=== PATIENT | female | born 1970 | race African-American/Black ===

== ENCOUNTER 2016-12-19 17:29 | Inpatient (IN) | payer OTHER ==
[2016-12-19] MEDS ORDERED: ACETAMINOPHEN 325 MG TABLET (FP) PO ONE (17:47)
--- NOTE | 2016-12-19 17:47 | PDOC ---
History of Present Illness - General History Source: Patient, Primary Care Provider Exam Limitations: No Limitations <Bimal Ribeiro - Last Filed: 12/19/16 17:48> - General History Source: Patient, Old Records, Primary Care Provider Exam Limitations: No Limitations - History of Present Illness Initial Comments: 12/19/16 18:08 The patient is a 46 year old female, with a significant past medical history of , who presents to the emergency department after being sent to be worked up for possible tuberculosis due to the finding of pulmonary cavitary lesion on a CT Scan. She notes that she started developing lower extremity edema a few months. She states that she has had a 19 pound weight loss during this time frame, along with fevers that are intermittent. She also underwent further workup at her PMDs office which demonstrated hemolytic anemia. She also states that she under went a bone marrow biopsy several days ago in order to rule puf leukemia, lymphoma. The patient denies chest pain, shortness of breath, headache and dizziness. Denies fever, chills, nausea, vomit, diarrhea and constipation. Denies dysuria, frequency, urgency and hematuria. Allergies: None Past surgical history: None reported Social history: No alcohol, tobacco or drug use reported PMD - Dr. Morel <Munir Melgoza - Last Filed: 12/19/16 18:11> - General Stated Complaint: PCP SENT Time Seen by Provider: 12/19/16 17:31 Review of Systems - Review of Systems Able to Perform ROS?: Yes Comments:: 12/19/16 18:07 GENERAL/CONSTITUTIONAL: No fever or chills. No weakness. HEAD, EYES, EARS, NOSE AND THROAT: No change in vision. No ear pain or discharge. No sore throat. CARDIOVASCULAR: No chest pain or shortness of breath RESPIRATORY: No cough, wheezing, or hemoptysis. GASTROINTESTINAL: No nausea, vomiting, diarrhea or constipation. GENITOURINARY: No dysuria, frequency, or change in urination. MUSCULOSKELETAL: No joint or muscle swelling or pain. No neck or back pain. EXTREMITIES: +Lower extremity edema bilaterally. SKIN: No rash NEUROLOGIC: No headache, vertigo, loss of consciousness, or change in strength/ sensation. ENDOCRINE: +Abnormal weight change. No increased thirst. HEMATOLOGIC/LYMPHATIC: No anemia, easy bleeding, or history of blood clots. ALLERGIC/IMMUNOLOGIC: No hives or skin allergy. <JojoMunir feliz Carolyn - Last Filed: 12/19/16 18:11> *Physical Exam - Vital Signs Last Vital Signs Temp Pulse Resp BP Pulse Ox 101.8 F H 105 H 20 97/62 99 12/19/16 18:02 12/19/16 18:02 12/19/16 18:02 12/19/16 18:02 12/19/16 18:02 - Physical Exam Comments: 12/19/16 18:08 GENERAL: Awake, alert, and fully oriented, in no acute distress. Thin appearing and warm to touch. HEAD: No signs of trauma, normocephalic, atraumatic EYES: PERRLA, EOMI, sclera anicteric, conjunctiva clear ENT: Auricles normal inspection, hearing grossly normal, nares patent, oropharynx clear without exudates. Moist mucosa NECK: Normal ROM, supple, no lymphadenopathy, JVD, or masses LUNGS: No distress, speaks full sentences, clear to auscultation bilaterally HEART: Regular rate and rhythm, normal S1 and S2, no murmurs, rubs or gallops, peripheral pulses normal and equal bilaterally. ABDOMEN: Soft, nontender, normoactive bowel sounds. No guarding, no rebound. No masses EXTREMITIES: 2+ pitting edema lower extremity bilaterally. Normal range of motion. No clubbing or cyanosis. NEUROLOGICAL: Cranial nerves II through XII grossly intact. Normal speech, normal gait, no focal sensorimotor deficits SKIN: Warm, Dry, normal turgor, no rashes or lesions noted. <Munir Melgoza - Last Filed: 12/19/16 18:11> Medical Decision Making - Medical Decision Making 12/19/16 17:48 A portion of this note was documented by scribe services under my direction. I have reviewed the details of the note, within reason, and agree with the documentation with the following case summary and management plan written by me. Patient treated in the ED. Nursing notes are reviewed and incorporated into the medical decision-making. Vital signs reviewed. Peripheral IV access obtained by the nurse, laboratory studies are drawn and sent, reviewed and interpreted by myself. 46-year-old female with no past medical history sent in from patient's primary care physician Dr. Morel for admission for pulmonary cavitary lesion. Patient reports that several months ago, patient has started developing lower extremity edema. She underwent a workup that demonstrated hemolytic anemia. Since then, the patient is noted a 19 pound weight loss and intermittent fevers. Patient had then underwent a bone marrow biopsy several days ago for rule out leukemia, lymphoma. Today, she underwent a CAT scan of the chest and of the pelvis to further workup fever of unknown origin and noted the pulmonary cavitary lesions , the TB need to rule out. Patient sent to the ER. Here, patient has a fever here. We'll draw adult sepsis protocol. Patient's PMD requests Dr. Mchugh. We' ll draw cultures, AFB smear and a few blood. We'll admit the patient to an isolated bed for TB workup. Case discussed in detail with admitting physician including history, physical exam and ancillary studies. Admitting physician has assumed care for the patient, will follow all pending diagnostics and will complete the evaluation and treatment. <Bimal Ribeiro - Last Filed: 12/19/16 17:48> - Medical Decision Making 12/19/16 18:10 Dr. Rodgers was called regarding the patient at 5:46pm Dr. Rodgers was consulted regarding the patient at 6:09pm [phone] <Munir Melgoza - Last Filed: 12/19/16 18:11> *DC/Admit/Observation/Transfer - Discharge Dispostion Admit: Yes <Bimal Ribeiro - Last Filed: 12/19/16 17:48> - Attestations Scribe Attestion: 12/19/16 18:09 Documentation prepared by Munir Melgoza, acting as biomedical field service engineer for Bimal Ribeiro MD <Munir Melgoza - Last Filed: 12/19/16 18:11> Diagnosis at time of Disposition: Pulmonary cavitary lesion - Referrals Referrals: Shaun Morel MD [Primary Care Provider] -
[2016-12-19 18:05] VITALS: BMI 19.2
[2016-12-19 18:12] LABS: BASOPHIL 0.3 % (0-2.0); EOSINOPHIL 0.1 % (0-4.5); MCH 28.6 pg (25.7-33.7); MCHC 32.3 g/dl (32.0-36.0); MEAN CELL VOLUME 88.7 fl (80-96); NEUTROPHILS 87.5 % (42.8-82.8); PLATELET COUNT 41 K/MM3 (134-434); RDW 20.9 % (11.6-15.6); WHITE BLOOD COUNT 19.4 K/mm3 (4.0-10.0)
[2016-12-19 18:24] LABS: INR 1.37 (0.82-1.09); PROTHROMBIN TIME (PATIENT) 15.2 SEC (9.98-11.88)
[2016-12-19 18:27] LABS: ACTIVATED PTT 27.6 SECONDS (26.9-34.4)
[2016-12-19 18:35] LABS: VENOUS BLOOD GAS HCO3 26.7 meq/L (19-25); VENOUS PH 7.44 (7.32-7.42)
[2016-12-19 18:43] LABS: ALBUMIN 2.4 g/dl (3.4-5.0); ANION GAP 10 (8-16); CALCIUM 7.5 mg/dL (8.5-10.1); CO2 25 mmol/L (21-32); CREATININE 0.8 mg/dL (0.55-1.02); GLUCOSE,RANDOM 105 mg/dL (74-106); SGOT/AST 65 U/L (15-37); SGPT/ALT 38 U/L (12-78); TOT PROT 6.6 g/dl (6.4-8.2)
[2016-12-19 18:45] LABS: ALK PHOS 75 U/L (45-117)
[2016-12-19] MEDS ORDERED: ACETAMINOPHEN 325 MG TABLET (FP) ONE (19:26)
[2016-12-19 20:44] LABS: POLYCHROMASIA 2+
[2016-12-19 20:45] LABS: ANISOCYTOSIS 3+; HYPOCHROMIA 2+; MICROCYTOSIS 1+; TEAR DROP CELLS 1+
[2016-12-19 22:20] LABS: HIV 1 & 2 AB NEGATIVE; HIV 1 AGp24 NEGATIVE
[2016-12-19 23:25] LABS: URINE APPEARANCE CLEAR; URINE BILIRUBIN NEGATIVE (NEGATIVE); URINE BLOOD NEGATIVE (NEGATIVE); URINE COLOR DKYELLOW; URINE GLUCOSE (UA) NEGATIVE (NEGATIVE); URINE KETONE NEGATIVE (NEGATIVE); URINE LEUK ESTERASE NEGATIVE (NEGATIVE); URINE NITRITE NEGATIVE (NEGATIVE); URINE PROTEIN NEGATIVE (NEGATIVE); URINE UROBILINOGEN 2.0 E.U/dl E.U./dl (0.2-1.0)
--- NOTE | 2016-12-20 01:14 | HP ---
Admitting History and Physical - Primary Care Physician PCP: Shaun Morel - Admission Chief Complaint: Progressive weight loss, fever and chills and pedal edema History of Present Illness: 46 y/o Black female who, works as a school bus driver, began to develop lower extremity edema about 4 weeks ago which the patient attributed to a newly prescribed medication from an ENT specialist for a post-nasal drip cough- Dymista. Patient stopped the medication and the edema improved. Before this, she had been treated with 10 day course of doxycycline 100 mg bid in September for a "bronchial infection" in a Urgent Care Clinic.In October, she was treated for "classroom allergens" with Claritin with fair results, which prompted the ENT visit in October. Shortly after this the patient that she was having progressive weight loss despite a good appetite. The patient was noted to be tachycardic, but otherwise had a normal exam. Laboratory testing revealed normocytic normochromic anemia with thrombocytopenia and leukcytosis. Thyroid function tests were normal, but had a low albumin and slight abnormalities in LFT's. Patient denied bloody sputum, night sweats, foreign travel or any known expose to active TB. Further denied melena, hematochezia, dyspepsia, or loss of appetite. No sx. Cough is mild and intermittent. Also, the denies oral lesions, sore throat, rash or any swellings anywhere. Repeat blood testing showed marked elevation in LDH, but normal uric acid, bilirubin and Maggie. Furthermore, the patient denied any sx that would suggest a localized infection. Referred to Hematology for evaluation of a probable new onset leukemia or lymphoma. Blodd marrow was performed 12/17/16, and the results were non-specific. CT scan of the chest/abd/pelvis was done today which revealed nodular cavitary changes in the apices, pleural effusions and mediastinal adenopathy. 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 Hx and abnormal CT scan suggested systemic process, and active TB was a serious concern. Therefore , patient was admitted for aggressive evaluation and treatment of possible new onset active TB. History Source: Patient Limitations to Obtaining History: No Limitations - Past Medical History EMPLOYMENT TRAINING SPECIALIST: No: Alzheimer's, CVA, Dementia, Migraine, Multiple Sclerosis, Peripheral Neuropathy, Parkinson's, Seizure, Syncope, TIA, Vertigo, Other Cardiovascular: Yes: Murmur (History "functional flow murmur" as young adult). No: AFIB, Aneurysm, Aortic Insufficiency, Aortic Stenosis, CAD, CHF, Deep Vein Thrombosis, HTN, Hyperlipdemia, NV, Mitral Insufficiency, Mitral Stenosis, Pulmonary Hypertension, Other Pulmonary: No: Asthma, Bronchitis, Cancer, COPD, O2 Dependent, Pneumonia, Previously Intubated, Pulmonary Embolus, Pulmonary Fibrosis, Sleep Apnea, Other Gastrointestinal: No: Ascites, Cancer, Constipation, Crohn's Disease, Diverticulitis, Diverticulosis, Esophageal Varices, Gastritis, GERD, GI Bleed, Hemorrhoids, Hiatal Hernia, Inflamatory Bowel Disease, Irritable Bowel Disease, Pancreatitis, Peptic Ulcer Disease, Ulcerative Colitis, Other Hepatobiliary: No: Cirrhosis, Cholelithiasis, Cholecystitis, Choledocholithiasis , Hepatitis A, Hepatitis B, Hepatitis C, Other Renal/: No: Renal Failure, Renal Inusuff, BPH, Cancer, Hematuria, Hemodialysis , Neurogenic Bladder, Renal Calculi, UTI, Other Heme/Onc: No: Anemia, B12 Deficiency, Bleeding Disorder, Cancer, Current Chemotherapy, Current Radiation Therapy, Hemochromatosis, Hypercoaguable State, Myeloproliferative Synd, Sickle Cell Disease, Sickle Cell Trait, Thrombocytopenia, Other Infectious Disease: No: AIDS, C-Diff, Herpes Zoster, HIV, MRSA, STD's, Tuberculosis, VREF, Other Musculoskeletal: No: Bursitis, Chronic low back pain, Hemiparesis, Hemiplegia, Osteoarthritis, Paraplegia, Other Rheumatology: No: Fibromyalgia, Gout, Lupus, Rheumatoid Arthritis, Sarcoidosis, Vasculitis, Other ENT: Yes: Allergic Rhinitis Endocrine: No: Ashuelot's Disease, Elverson's Disease, Diabetes Insipidus, Diabetes Mellitus, Hyperparathyroidism, Hyperthyroidism, Hypothyroidism, Osteopenia, SIADH, Other Dermatology: No: Basal Cell, Cellulitis, Eczema, Melanoma, Psoriasis, Squamous Cell, Other - Past Surgical History Past Surgical History: No: None, AAA Repair, AICD, Amputation, Appendectomy, Arthrosocopy, AV Fistula/Graft, Bariatric Surgery, Breast Biopsy, Bypass, CABG, Carotid Endarterectomy, Cataract Removal, Cholecystectomy, Colectomy, Colonoscopy, Colostomy, Craniotomy, , Cystectomy, Hernia Repair, Hysterectomy, Ileal Conduit, Ileosotomy, Joint Replacement, Kidney Transplant, Laminectomy, Liver Transplant, Mastectomy, Nephrectomy, Oopherectomy, Orchiectomy, Permanent Pacemaker, Prostatectomy, Splenectomy, Stent, Thoracotomy , TURP, Tonsillectomy, Tubal Ligation, Upper Endoscopy, Valve Replacement, Vasectomy, Vein Stripping/Ligation - Smoking History Smoking history: Never smoked Have you smoked in the past 12 months: No - Alcohol/Substance Use Hx Alcohol Use: No History of Substance Use: reports: None - Social History Usual Living Arrangement: Yes: With Parent ADL: Independent Occupation: teacher History of Recent Travel: No Home Medications - Allergies Allergies/Adverse Reactions: Allergies Allergy/AdvReac Type Severity Reaction Status Date / Time No Known Allergies Allergy Verified 12/19/16 18:21 - Home Medications Home Medications: Ambulatory Orders Metoprolol Succinate 25 mg DAILY 12/20/16 Home Medications (free text): Feosol 325 mg bid Family Disease History - Family Disease History Family History: Unremarkable Physical Examination Vital Signs: Vital Signs Temperature 97.8 F 12/19/16 22:45 Pulse Rate 95 H 12/19/16 22:45 Respiratory Rate 18 12/19/16 22:45 Blood Pressure 89/49 12/19/16 22:45 O2 Sat by Pulse Oximetry (%) 99 12/19/16 22:03 Constitutional: Yes: No Distress, Calm, Cachectic Eyes: Yes: WNL, Conjunctiva Clear, EOM Intact HENT: Yes: WNL, Atraumatic, Normocephalic Neck: Yes: WNL, Supple, Trachea Midline Cardiovascular: Yes: Regular Rate and Rhythm, Tachycardia, Murmur (JAC 2-3/4 apex with radiation, and 2/4 R base non-radiating), Other Respiratory: Yes: WNL, Regular, CTA Bilaterally, Cough Gastrointestinal: Yes: WNL, Normal Bowel Sounds ...Rectal Exam: Yes: Deferred (Guiac negative 2 weeks ago.) Renal/: Yes: WNL Breast(s): Yes: WNL. No: Left, Right, Breast Implants, Dimpling, Discharge from Nipple, Gynecomastia, Mass, Nipple Inversion, Skin Changes, Other Musculoskeletal: Yes: WNL Extremities: Yes: WNL Edema: Yes Edema: LLE: 2+, RLE: 2+ Peripheral Pulses: Left Radial: 2+, Right Radial: 2+, Left Doralis Pedis: 2+, Right Dorsalis Pedis: 2+, Left Femoral: 2+, Right Femoral: 2+ Integumentary: Yes: WNL, Other (No splinter hemorrhages under nails) Neurological: Yes: WNL, Alert, Oriented ...Motor Strength: WNL Psychiatric: Yes: WNL Labs: CBC, BMP 12/19/16 18:01 12/19/16 18:01 Imaging - Results Cat Scan: Report Reviewed EKG: Report Reviewed Problem List - Problems (1) Fever Code(s): R50.9 - FEVER, UNSPECIFIED (2) Weight loss Code(s): R63.4 - ABNORMAL WEIGHT LOSS (3) Anemia Code(s): D64.9 - ANEMIA, UNSPECIFIED (4) Leukocytosis Code(s): D72.829 - ELEVATED WHITE BLOOD CELL COUNT, UNSPECIFIED (5) Thrombocytopenia Code(s): D69.6 - THROMBOCYTOPENIA, UNSPECIFIED Assessment/Plan Admit to respiratory isolation, Hematology, Pulmonary, and Infectious Disease evaluations. Dhillon cultures, Quantiferon TB testing, serial cbc/chemistries and abdominal US. Will get echocardiogram to further evaluate murmurs and r/o vegetations.
[2016-12-20] MEDS ORDERED: ZOLPIDEM TARTRATE 5 MG TABLET PO PRN (01:15)
[2016-12-20 08:30] LABS: ALBUMIN 2.1 g/dl (3.4-5.0); ANION GAP 10 (8-16); CALCIUM 7.7 mg/dL (8.5-10.1); CO2 27 mmol/L (21-32)
[2016-12-20 08:36] LABS: ALK PHOS 64 U/L (45-117); BASOPHIL 0.2 % (0-2.0); COCKROFT - GAULT 106.7345; CREATININE 0.6 mg/dL (0.55-1.02); EOSINOPHIL 0.2 % (0-4.5); GLUCOSE,RANDOM 99 mg/dL (74-106); LDH 424 U/L (84-246); MCH 29.1 pg (25.7-33.7); MCHC 32.7 g/dl (32.0-36.0); MEAN PLT VOLUME 9.4 fl (7.5-11.1); NEUTROPHILS 88.5 % (42.8-82.8); RDW 20.8 % (11.6-15.6); SGOT/AST 58 U/L (15-37); SGPT/ALT 35 U/L (12-78); TOT PROT 5.8 g/dl (6.4-8.2); WHITE BLOOD COUNT 17.6 K/mm3 (4.0-10.0)
[2016-12-20 08:58] LABS: PLATELET COUNT 33 K/MM3 (134-434)
--- NOTE | 2016-12-20 10:03 | PN ---
Progress Note (short form) - Note Progress Note: ID 46 year old female pressents with 4 month history of fevers weight loss 2o lbs and nonproductive couph. Originally treated with doxycyline in sep without improvement. Subsequentl found to be anemic on blood work and referred to Dr Tucker hematology. Work up included a bone marrow which did not show malignancy or granulomas. Not sure if was cultured however. Recent CT imaging now has pleural thickening nodules with cavitation. CT abd has hepato- splenomegaly and ? renal infarct or mass. She denies night sweats and her appetite is not great. No abd pain or urinary complaints, rash, joint pains, headaches visual complaints. She was born in [place] always lived on [address] [facility]. Says HIV tested negative recently . 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 Selected Entries 12/19/16 12/20/16 18:02 06:00 Temperature 101.8 F H 99.3 F Pulse Rate 104 H Respiratory 18 Rate Blood Pressure 86/53 HEENT Conjuctiva pale with no petechiae Pharynx teeth in good repair no thrush Neck NO adenopathy Supple Lung Basilar rales Dullness to percussion Cor S1 S2 Grade 2 systolic murmur LSB and apex Abd Thin palpable hepatomegaly No splenomegaly nontender no mass Ext 2+ bilater edema Microbiology Laboratory Tests 12/19/16 12/19/16 12/19/16 18:01 18:09 18:09 WBC 19.4 H Hgb 7.8 L Hct 24.2 L Plt Count 41 L ESR 30 H BUN Creatinine Creat Clearance w eGFR Calcium Total Bilirubin AST ALT Alkaline Phosphatase LD Total C-Reactive Protein 3.2 H Total Protein Albumin Ur Leukocyte Esterase HIV 1&2 Antibody Screen HIV P24 Antigen 12/19/16 12/19/16 12/20/16 20:49 23:19 07:00 WBC Hgb Hct Plt Count ESR BUN 13 Creatinine 0.6 D Creat Clearance w eGFR > 60 Calcium 7.7 L Total Bilirubin 1.0 AST 58 H ALT 35 Alkaline Phosphatase 64 LD Total 424 H C-Reactive Protein Total Protein 5.8 L Albumin 2.1 L Ur Leukocyte Esterase Negative HIV 1&2 Antibody Screen Negative HIV P24 Antigen Negative Assessment 46 year old female with FUO in association with cavitary lung disease hepatosplenomegaly possible renal infarct vs mass heart murmur Lab findings leukocytosis anemia and thrombocytopenia. She also has moderate pleural effusions and peripheral edema. My differential diagnosis includes: Mycobacterial disease include TB. This could certainly cavitate and cause hepatosplenomegaly. However I would have expected pancytopenia and to see granulomas on the bone marrow not seen Bacterial Endocarditis She has a loud heart murmur with fever and cavitary nodules possibly embolic. ? Renal infarct embolic. Sardoidosis Pulmonary and systemic involvement However her Alk phos is normal but does not rule out Neoplasm still considered Plan Blood cultures x 3 sets Hold for 28 days Bartonella serology Sputum AFB PCR x 2 and smear Quant gold ELISABETH Complete urine analysis Urine culture AFB ECHO Thoracentesis in interventional for analysis and cultures ABD c/s Fungus No antibiotics Angiotesnin converting enzyme Lolita KELLY Problem List - Problems (1) Fever, unknown origin Code(s): R50.9 - FEVER, UNSPECIFIED (2) Pulmonary cavitary lesion Code(s): J98.4 - OTHER DISORDERS OF LUNG (3) Thrombocytopenia Code(s): D69.6 - THROMBOCYTOPENIA, UNSPECIFIED
[2016-12-20] MEDS ORDERED: CEFTRIAXONE 1 GM in DEXTROSE 5%-WATER - 50 ML IVPB SCH (10:45)
[2016-12-20 11:12] LABS: URIC ACID 3.6 mg/dL (2.6-7.2)
[2016-12-20] MEDS: VANCOMYCIN 1 GRAM (PRE-DOCKED) 1,000 MG/250 ML BAG IVPB SCH ×2 (11:40→22:30)
--- NOTE | 2016-12-20 12:21 | EKG ---
Test Reason : Blood Pressure : / mmHG Vent. Rate : 095 BPM Atrial Rate : 095 BPM P-R Int : 124 ms QRS Dur : 068 ms QT Int : 364 ms P-R-T Axes : 078 064 092 degrees QTc Int : 457 ms SINUS RHYTHM WITH OCCASIONAL PREMATURE VENTRICULAR COMPLEXES POSSIBLE LEFT ATRIAL ENLARGEMENT NONSPECIFIC ST AND T WAVE ABNORMALITY ABNORMAL ECG NO PREVIOUS ECGS AVAILABLE Confirmed by ELI GUILLORY MD ([id number]) on 12/20/2016 12:21:19 PM Referred By: Confirmed By:ELI GUILLORY MD
--- NOTE | 2016-12-20 14:45 | CON.PULM ---
Consult Consult Specialty:: PULMONARY Referred by:: Dr. Morel Reason for Consultation:: pulmonary infiltrates - History of Present Illness Chief Complaint: generalized weakness History of Present Illness: 46yo female without significant past medical history who presents with worsening generalized weakness and weight loss x 4-5 weeks. Has had an extensive outpt work up, had a CT chest/abd/pelvis yesterday which showed systemic disease, sent to the hospital for further work up. She reports subjective chills without fevers or night sweats. No cough or wheezing. Reports unintentional weight loss of about 20lbs in the past month. No recent travel, sick contacts. No skin breaks, denies any intravenous activity. Blood cultures already growing gram positive cocci in chains. She reports being told of a murmur for as long as she has been seeing doctors. - History Source History Provided By: Patient, Medical Record Limitations to Obtaining History: No Limitations - Past Medical History ...: No ENT: Yes: Allergic Rhinitis - Alcohol/Substance Use Hx Alcohol Use: No - Smoking History Smoking history: Never smoked Have you smoked in the past 12 months: No - Social History ADL: Independent Occupation: teacher History of Recent Travel: No Home Medications - Allergies Allergies/Adverse Reactions: Allergies Allergy/AdvReac Type Severity Reaction Status Date / Time No Known Allergies Allergy Verified 12/19/16 18:21 - Home Medications Home Medications: Ambulatory Orders Metoprolol Succinate 25 mg DAILY 12/20/16 Family Disease History - Family Disease History Other Family History: non-contributory Review of Systems - Review of Systems Constitutional: reports: Chills, Unintentional Wgt. Loss, Weakness. denies: Night Sweats Eyes: denies: Recent Change in Vision HENT: denies: Nasal Congestion, Throat Pain Neck: denies: Stiffness, Tenderness Cardiovascular: denies: Chest Pain, Shortness of Breath Respiratory: denies: Cough, Hemoptysis, Wheezing Gastrointestinal: denies: Abdominal Pain, Nausea, Vomiting Genitourinary: denies: Dysuria, Hematuria Neurological: denies: Dizziness, Headache Endocrine: reports: Unexplained Weight Loss Physical Exam Vital Sings: Vital Signs Temperature 99.3 F 12/20/16 06:00 Pulse Rate 104 H 12/20/16 06:00 Respiratory Rate 18 12/20/16 06:00 Blood Pressure 86/53 12/20/16 06:00 O2 Sat by Pulse Oximetry (%) 92 L 12/20/16 09:00 Constitutional: Yes: Calm Eyes: Yes: Conjunctiva Clear, EOM Intact HENT: Yes: Atraumatic, Normocephalic Neck: Yes: Lymphadenopathy (right posterior cervical, shoddy right anterior cervical) Cardiovascular: Yes: Regular Rate and Rhythm, Murmur Respiratory: Yes: Regular, CTA Bilaterally ...Clubbing: No Gastrointestinal: Yes: Normal Bowel Sounds, Soft. No: Tenderness Edema: Yes Neurological: Yes: Alert, Oriented Labs: CBC, BMP 12/20/16 07:00 12/20/16 07:00 Imaging - Results Chest X-ray: Report Reviewed, Image Reviewed Cat Scan: Report Reviewed, Image Reviewed Problem List - Problems (1) Gram positive sepsis Code(s): A41.89 - OTHER SPECIFIED SEPSIS (2) Pulmonary cavitary lesion Code(s): J98.4 - OTHER DISORDERS OF LUNG (3) Anemia Code(s): D64.9 - ANEMIA, UNSPECIFIED (4) Thrombocytopenia Code(s): D69.6 - THROMBOCYTOPENIA, UNSPECIFIED Assessment/Plan Gram Positive Sepsis Anemia Thrombocytopenia Unintentional Weight Loss Cavitary Lung Disease/Liver/Spleen/Renal Nodules r/o Endocarditis r/o Mycobacterial infection - agree with antibiotics - f/u cultures - airborne isolation - PPD - quantiferon gold - sputum for AFB - HIV test - echocardiogram - may need CYNTHIA if TTE unrevealing - available for bronchoscopy/BAL but lung infiltrates likely related to bacteremia - DVT prophylaxis Thank you for this consult Demetri Vidal MD
[2016-12-20] MEDS ORDERED: ACETAMINOPHEN 325 MG TABLET (FP) PO PRN (16:09)
[2016-12-20] MEDS: CEFTRIAXONE 50 ML IVPB SCH (22:00)
[2016-12-20 22:29] LABS: URINE APPEARANCE CLOUDY; URINE BILIRUBIN NEGATIVE (NEGATIVE); URINE COLOR AMBER; URINE GLUCOSE (UA) NEGATIVE (NEGATIVE); URINE KETONE NEGATIVE (NEGATIVE); URINE NITRITE NEGATIVE (NEGATIVE); URINE UROBILINOGEN 4.0 E.U/dl E.U./dl (0.2-1.0)
[2016-12-20 22:37] LABS: URINE BLOOD 1+ (NEGATIVE); URINE LEUK ESTERASE TRACE (NEGATIVE); URINE PROTEIN 1+ (NEGATIVE)
[2016-12-20 22:40] LABS: URINE BACTERIA RARE /hpf (NONE SEEN); URINE MUCUS FEW; URINE RBC 37 /hpf (0-3); URINE WBC 29 /hpf (3-5); YEAST RARE
--- NOTE | 2016-12-21 01:28 | PN ---
Progress Note, Physician Chief Complaint: FUO with leukocytosis, thrombocytopenia, and anemia. History of Present Illness: Patient continues to feel fatigued. Developed dyspnea this PM and was put Venti Mask 50% Now saturating in the upper 90's, and comfortable. Had LE Duplex Doppler and renal US. Evaluated by ID and Pulmonary Medicine. Started on empiric Ab Rx with Rocephin and Vancomycin. Intermittent fevers persist. Appetite fair. Work-up in progress. - Current Medication List Current Medications: Active Medications Acetaminophen (Tylenol -) 650 mg PO Q6H PRN PRN Reason: FEVER Ceftriaxone Sodium (Rocephin 1gm Ivpb (Pre-Docked)) 50 mls @ 100 mls/hr IVPB BID AMAN Last Admin: 12/20/16 22:00 Dose: 100 mls/hr Vancomycin HCl (Vancomycin (Pre-Docked)) 1,000 mg IVPB BID AMAN PRN Reason: Protocol Last Admin: 12/20/16 22:30 Dose: 1,000 mg Zolpidem Tartrate (Ambien -) 5 mg PO HS PRN PRN Reason: INSOMNIA Last Admin: 12/21/16 00:07 Dose: 5 mg - Objective Vital Signs: Vital Signs Temperature 99.6 F 12/20/16 17:05 Pulse Rate 116 H 12/20/16 17:05 Respiratory Rate 20 12/20/16 21:00 Blood Pressure 97/66 12/20/16 17:05 O2 Sat by Pulse Oximetry (%) 92 L 12/20/16 09:00 Constitutional: Yes: Cachectic Eyes: Yes: WNL HENT: Yes: WNL Neck: Yes: WNL Cardiovascular: Yes: Regular Rate and Rhythm, Tachycardia, Murmur Respiratory: Yes: CTA Bilaterally Gastrointestinal: Yes: Normal Bowel Sounds, Soft Edema: Yes Edema: LLE: 2+, RLE: 2+ Peripheral Pulses: Left Radial: 2+, Right Radial: 2+, Left Femoral: 2+, Right Femoral: 2+ Integumentary: Yes: WNL Neurological: Yes: Alert, Oriented Labs: CBC, BMP 12/20/16 07:00 12/20/16 07:00 INR, PTT INR 1.37 (0.82-1.09) H 12/19/16 18:01 Problem List - Problems (1) Fever Code(s): R50.9 - FEVER, UNSPECIFIED (2) Weight loss Code(s): R63.4 - ABNORMAL WEIGHT LOSS (3) Anemia Code(s): D64.9 - ANEMIA, UNSPECIFIED (4) Leukocytosis Code(s): D72.829 - ELEVATED WHITE BLOOD CELL COUNT, UNSPECIFIED (5) Thrombocytopenia Code(s): D69.6 - THROMBOCYTOPENIA, UNSPECIFIED Assessment/Plan Duplex LE Doppler-No DVT Renal US-Essentially normal. ?R renal infarction Blood C/S-gram(+)cocci in long chains 1-Case discussed with ID. Feels that this point the most likely Dx is SBE. Will begin empiric Ab Rx with Rocephin/Vancomycin. Awaiting final blood culture results. 2-Echocardiogram reviewed with cardiology-did not see vegetations on valves, but can not rule them out either. Did have significant TR and MR due to underlying valvular dz. Mitral valve will need replacement in the future. Therefore, will get Cardiology evaluation. 3-Still ruling out active TB, and awaiting QuantiFeron test results.
[2016-12-21] MEDS ORDERED: TUBERCULIN PPD 5 TU/0.1ML SYRINGE (IN PATIENT USE ONLY) ID ONE (07:00)
--- NOTE | 2016-12-21 08:59 | PN ---
Progress Note, Physician Chief Complaint: ID Febrile over night [address] Bailey regarding ECHO findings Large mitral valve veg with severe MR !! She complains of SOB couph No chest pain - Current Medication List Current Medications: Active Medications Acetaminophen (Tylenol -) 650 mg PO Q6H PRN PRN Reason: FEVER Ceftriaxone Sodium (Rocephin 1gm Ivpb (Pre-Docked)) 50 mls @ 100 mls/hr IVPB BID AMAN Last Admin: 12/20/16 22:00 Dose: 100 mls/hr Vancomycin HCl (Vancomycin (Pre-Docked)) 1,000 mg IVPB BID AMAN PRN Reason: Protocol Last Admin: 12/20/16 22:30 Dose: 1,000 mg Zolpidem Tartrate (Ambien -) 5 mg PO HS PRN PRN Reason: INSOMNIA Last Admin: 12/21/16 00:07 Dose: 5 mg - Objective Vital Signs: Vital Signs Temperature 96.4 F L 12/21/16 06:00 Pulse Rate 86 12/21/16 06:00 Respiratory Rate 20 12/21/16 06:00 Blood Pressure 81/58 12/21/16 06:00 O2 Sat by Pulse Oximetry (%) 92 L 12/20/16 09:00 Constitutional: Yes: Mild Distress, Thin Eyes: Yes: Other (right conjuctival petechiae!) Neck: Yes: WNL, Supple Respiratory: Yes: WNL, Regular, CTA Bilaterally, Diminished, Rales Gastrointestinal: Yes: Soft, Hepatomegaly. No: Splenomegaly, Tenderness, Tenderness, Epigastrium Edema: Yes Labs: CBC, BMP 12/20/16 07:00 12/20/16 07:00 INR, PTT INR 1.37 (0.82-1.09) H 12/19/16 18:01 Problem List - Problems (1) Fever, unknown origin Code(s): R50.9 - FEVER, UNSPECIFIED (2) Pulmonary cavitary lesion Code(s): J98.4 - OTHER DISORDERS OF LUNG (3) Thrombocytopenia Code(s): D69.6 - THROMBOCYTOPENIA, UNSPECIFIED Assessment/Plan Microbiology 12/19/16 18:01 Blood - Peripheral Venous Blood Culture - Preliminary Streptococcus Viridans 12/19/16 18:01 Blood - Peripheral Venous Blood Culture - Preliminary Streptococcus Viridans Laboratory Tests 12/19/16 12/19/1617 18:09 18:09 20:49 WBC Hgb Hct Plt Count ESR 30 H BUN Creatinine Total Bilirubin AST ALT Alkaline Phosphatase LD Total C-Reactive Protein 3.2 H Ur Leukocyte Esterase Urine RBC Urine WBC HIV 1&2 Antibody Screen Negative HIV P24 Antigen Negative 12/20/16 12/20/16 12/20/16 07:00 07:00 22:00 WBC 17.6 H Hgb 7.6 L Hct 23.2 L Plt Count 33 L* ESR BUN 13 Creatinine 0.6 D Total Bilirubin 1.0 AST 58 H ALT 35 Alkaline Phosphatase 64 LD Total 424 H C-Reactive Protein Ur Leukocyte Esterase Trace H Urine RBC 37 Urine WBC 29 HIV 1&2 Antibody Screen HIV P24 Antigen Assessment 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
[2016-12-21] MEDS: CEFTRIAXONE 50 ML IVPB SCH (10:32)
[2016-12-21] MEDS: VANCOMYCIN 1 GRAM (PRE-DOCKED) 1,000 MG/250 ML BAG IVPB SCH (11:09)
--- NOTE | 2016-12-21 11:39 | CON.CARD ---
Cardiology Consult (text) - Consultation Consultation Note: cc: fever, wt loss hpi: 46 f no sig pmhx here with fevers, wt loss. For past 4 months pt has had fevers, wt loss, cough. Has been evaluated as outpt with numerous tests w/o etiology, then recently had ct showing pulm cavitary lesions and ?splenic involvement so was admitted for w/u. No cp, palps, dizzy, loc, pnd, orthopnea. Also over this time has noticed le edema and then recently overnight here became sob requiring supplemental o2. No hx hrt dz. 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 pmh: per hpi psh: nc fam: no premature cad, scd social: no tob, no drug use ros: per hpi; no n/v/d, gib, hematuria, rash, price, vision changes, muscle pains meds: Home Medications Medication Instructions Recorded Metoprolol Succinate 25 mg DAILY 12/20/16 pe: Vital Signs Temp 97.5 F L 12/21/16 09:34 Pulse 88 12/21/16 11:19 Resp 20 12/21/16 11:19 BP 85/55 12/21/16 11:19 Pulse Ox 92 L 12/20/16 09:00 Intake & Output 12/20/16 12/20/16 12/21/16 11:59 23:59 11:59 Intake Total 550 Balance 550 Intake: IV 550 saline lock 550 Other: Voiding Method Toilet Toilet # Unmeasured Voids Void 1 1 1 nad no jvd rrr s1s2 +MR murmur, no r/g mild bibasilar crackles, nl eff 1+le edema bl, no c/c abd nt nd pos bs no jaundice diaphoresis +dp pt, no carotid bruits [id number] Laboratory Last Values WBC 17.6 K/mm3 (4.0-10.0) H 12/20/16 07:00 RBC 2.61 M/mm3 (3.60-5.2) L 12/20/16 07:00 Hgb 7.6 GM/dL (10.7-15.3) L 12/20/16 07:00 Hct 23.2 % (32.4-45.2) L 12/20/16 07:00 MCV 89.0 fl (80-96) 12/20/16 07:00 MCHC 32.7 g/dl (32.0-36.0) 12/20/16 07:00 RDW 20.8 % (11.6-15.6) H 12/20/16 07:00 Plt Count 33 K/MM3 (134-434) L* 12/20/16 07:00 MPV 9.4 fl (7.5-11.1) 12/20/16 07:00 Neutrophils % 88.5 % (42.8-82.8) H 12/20/16 07:00 Lymphocytes % 8.1 % (8-40) 12/20/16 07:00 Monocytes % 3.0 % (3.8-10.2) L 12/20/16 07:00 Eosinophils % 0.2 % (0-4.5) D 12/20/16 07:00 Basophils % 0.2 % (0-2.0) 12/20/16 07:00 Polychromasia 2+ 12/19/16 18:01 Hypochromic-Microcytic 2+ 12/19/16 18:01 Anisocytosis 3+ 12/19/16 18:01 Microcytosis 1+ 12/19/16 18:01 Macrocytosis 1+ 12/19/16 18:01 Tear Drop Cells 1+ 12/19/16 18:01 Morphology Comment Slide scanned 12/19/16 18:01 ESR 30 mm/hr (0-20) H 12/19/16 18:09 INR 1.37 (0.82-1.09) H 12/19/16 18:01 PTT (Actin FS) 27.6 SECONDS (26.9-34.4) 12/19/16 18:01 VBG pH 7.44 (7.32-7.42) H 12/19/16 18:30 POC VBG pCO2 40.3 mmHg (38-52) 12/19/16 18:30 POC VBG pO2 16.4 mmHg (28-48) L* 12/19/16 18:30 Mixed VBG HCO3 26.7 meq/L (19-25) H 12/19/16 18:30 Sodium 132 mmol/L (136-145) L 12/20/16 07:00 Potassium 3.7 mmol/L (3.5-5.1) 12/20/16 07:00 Chloride 95 mmol/L (98-107) L 12/20/16 07:00 Carbon Dioxide 27 mmol/L (21-32) 12/20/16 07:00 Anion Gap 10 (8-16) 12/20/16 07:00 BUN 13 mg/dL (7-18) 12/20/16 07:00 Creatinine 0.6 mg/dL (0.55-1.02) D 12/20/16 07:00 Creat Clearance w eGFR > 60 (>60) 12/20/16 07:00 Random Glucose 99 mg/dL (74-106) 12/20/16 07:00 Lactic Acid 0.905 mmol/L (0.4-2.0) 12/19/16 18:01 Uric Acid 3.6 mg/dL (2.6-7.2) 12/20/16 07:00 Calcium 7.7 mg/dL (8.5-10.1) L 12/20/16 07:00 Total Bilirubin 1.0 mg/dL (0.2-1.0) 12/20/16 07:00 AST 58 U/L (15-37) H 12/20/16 07:00 ALT 35 U/L (12-78) 12/20/16 07:00 Alkaline Phosphatase 64 U/L (45-117) 12/20/16 07:00 LD Total 424 U/L (84-246) H 12/20/16 07:00 Creatine Kinase 84 IU/L (26-192) 12/19/16 18:01 Troponin I 0.20 ng/ml (0.00-0.05) H 12/19/16 18:01 C-Reactive Protein 3.2 MG/DL (0.00-0.3) H 12/19/16 18:09 Total Protein 5.8 g/dl (6.4-8.2) L 12/20/16 07:00 Albumin 2.1 g/dl (3.4-5.0) L 12/20/16 07:00 Urine Color Emiliana 12/20/16 22:00 Urine Appearance Cloudy 12/20/16 22:00 Urine pH 6.0 (5.0-8.0) 12/20/16 22:00 Ur Specific [place] 1.029 (1.001-1.035) 12/20/16 22:00 Urine Protein 1+ (NEGATIVE) H 12/20/16 22:00 Urine Glucose (UA) Negative (NEGATIVE) 12/20/16 22:00 Urine Ketones Negative (NEGATIVE) 12/20/16 22:00 Urine Blood 1+ (NEGATIVE) H 12/20/16 22:00 Urine Nitrite Negative (NEGATIVE) 12/20/16 22:00 Urine Bilirubin Negative (NEGATIVE) 12/20/16 22:00 Urine Urobilinogen 4.0 e.u/dl E.U./dl (0.2-1.0) H 12/20/16 22:00 Ur Leukocyte Esterase Trace (NEGATIVE) H 12/20/16 22:00 Urine RBC 37 /hpf (0-3) 12/20/16 22:00 Urine WBC 29 /hpf (3-5) 12/20/16 22:00 Ur Epithelial Cells Rare /hpf (FEW) 12/20/16 22:00 Urine Bacteria Rare /hpf (NONE SEEN) 12/20/16 22:00 Urine Mucus Few 12/20/16 22:00 Urine Yeast Rare 12/20/16 22:00 HIV 1&2 Antibody Screen Negative 12/19/16 20:49 HIV P24 Antigen Negative 12/19/16 20:49 Blood Type O POSITIVE 12/19/16 18:01 Antibody Screen Negative 12/19/16 18:01 echo 12/2016: nl lv/rv, vegetation on ant leaflet MV with severe prolapse of ant leaflet and severe MR, mod-sev TR (no veg seen) ecg 12/19/16: sr, pacs, nl intervals, no ischemic changes est cct 36 mins a/p: 46 f no sig pmhx here with fevers, wt loss. endocarditis, severe mr, tr: -pt with presentation consistent with SBE, +strep viridans in bld cxs -echo reviewed and shows MV veg with severe MR, also mod-sev TR (although no veg seen on TV) -given severity of MR and now with some pulm congestion (symptomatic MR), she has indication for valve surgery -case was discussed with CTS at [facility] and pt accepted for transfer -currently satting well on venti mask, will avoid lasix for now given hypotension (likely from sepsis) -cont abx per ID -case d/w pmd and ID as well thrombocytopenia, anemia: -recent nonspecific BM bx as outpt, likely related to infection, cont to monitor
[2016-12-21] MEDS ORDERED: LORazepam 0.5 MG TABLET PO PRN (13:12)
--- NOTE | 2016-12-21 15:05 | PN ---
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
--- NOTE | 2016-12-21 15:18 | PN ---
Progress Note (short form) - Note Progress Note: Pt known to me from last wk office consult She has undergone bm bx and CT scan and now admitted for further w/u and what was thought to be possib TB per CT findings. Now strep viridans endocarditis diagnosed and MV veg visualized on echo. Valvular surg advised and transfer to [facility] is arranged. Reports feeling somewhat better since starting abx. PE resting, family at bedside anicteric CVS-tachy S1S2, murmur USB Lungs-ant CTA ext-bilat edema Imp - leukocytosis, YAIMA, t-penia in setting of subacute process, now dx w endocarditis of unclear etiol f/u cbc now; xfuse plts if <20K or evid of bleeding. Will send fibrinogen. The iron def is curious and will need GI w/u once stable. The h/h initially improved w iron supp. Consider PC transfusion, and would defer to cardiology in terms of volume status and tolerability.
[2016-12-21 17:10] VITALS: BP 82/55; PULSE 93
[2016-12-21 17:23] LABS: MCH 28.7 pg (25.7-33.7); MCHC 32.5 g/dl (32.0-36.0); MEAN CELL VOLUME 88.4 fl (80-96); MEAN PLT VOLUME 10.2 fl (7.5-11.1); PLATELET COUNT 43 K/MM3 (134-434); RDW 20.1 % (11.6-15.6); WHITE BLOOD COUNT 23.6 K/mm3 (4.0-10.0)
[2016-12-21 21:53] LABS: PLATELET ESTIMATE MARKEDLY DECREASED (NORMAL)
[2016-12-21 21:54] LABS: ANISOCYTOSIS 2+; HYPOCHROMIA 2+; MICROCYTOSIS 1+; POIKILOCYTOSIS 2+; POLYCHROMASIA 3+
[2016-12-21 22:24] VITALS: TEMP 103
--- NOTE | 2016-12-21 23:30 | PN ---
Progress Note, Physician Chief Complaint: FUO with leukocytosis, thrombocytopenia, and anemia. History of Present Illness: Patient stable from yesterday. Continues to require VentiMask 50% to maintain O2 saturation in 98-100% range. No chest pain or palpations. Has been afebrile all day today. Edema unchanged per patient. Case discussed with ID-Shwetha Mchugh MD and Cardiology-Shwetha Bailey MD. Preliminary blood cultures x2 reveal Strep viridans, and final echo report states large anterior leaflet vegetation on mitral valve with severe MR. Decision made for transfer to tertiary facility for mitral value surgery, and intensive medical treatment. - Current Medication List Current Medications: Rocephin 1 gm IVPB qd Vancomycin 1 gm IVPB qd Tylenol 650 mg po q6hrs prn Ambien 5 mg po HS prn - Objective Vital Signs: Vital Signs Temperature 103 F H 12/21/16 22:24 Pulse Rate 93 H 12/21/16 17:09 Respiratory Rate 20 12/21/16 17:09 Blood Pressure 82/55 12/21/16 17:09 O2 Sat by Pulse Oximetry (%) 100 12/21/16 09:00 Constitutional: Yes: Cachectic, Thin Eyes: Yes: Other (R conjunctival petechial hemorrhage) HENT: Yes: WNL Neck: Yes: Supple, Trachea Midline Cardiovascular: Yes: Regular Rate and Rhythm, Murmur (2-3/4 JAC at apex with radiation and 2/4 JAC R base) Respiratory: Yes: CTA Bilaterally, Rales (Few rales at the bases bilaterally) Gastrointestinal: Yes: Normal Bowel Sounds, Soft Musculoskeletal: Yes: WNL Extremities: Yes: WNL Edema: Yes Edema: LLE: 1+, RLE: 1+ Peripheral Pulses: Left Radial: 2+, Right Radial: 2+, Left Femoral: 2+, Right Femoral: 2+ Integumentary: Yes: WNL Neurological: Yes: WNL, Alert, Oriented ...Motor Strength: WNL Labs: AFB smear-negative CBC, BMP Blood cultures-Strep viridans x2 QuantiFeron TB-pending 12/20/16 07:00 INR, PTT INR 1.37 (0.82-1.09) H 12/19/16 18:01 Fibrinogen 293.0 mg/dL (238-498) 12/21/16 16:30 - ....Imaging Other: Other (Echocardiogram-nl LVF/nl RVF, severe prolapse of anterior leaflet with 1.2 x 1.4 cm vegetation present, moderate/severe TR) Problem List - Problems (1) Fever Code(s): R50.9 - FEVER, UNSPECIFIED (2) Weight loss Code(s): R63.4 - ABNORMAL WEIGHT LOSS (3) Anemia Code(s): D64.9 - ANEMIA, UNSPECIFIED (4) Leukocytosis Code(s): D72.829 - ELEVATED WHITE BLOOD CELL COUNT, UNSPECIFIED (5) Thrombocytopenia Code(s): D69.6 - THROMBOCYTOPENIA, UNSPECIFIED Assessment/Plan Assessment- 1)-Subacute bacterial endocarditis-Strep viridans 2)-Severe MR 3)-Moderate/severe TR 4)-Early CHF secondary to severe MR/sepsis Plan- 1)-Continue IV Rx and O2. 2)-Transfer to [facility] for further treatment of severe valvular heart dz and SBE.
== END 2016-12-21 17:41 | disposition short-term general hospital (02) | DRG 871 ==
LOC: JER 17:29 → JERBED 17:47 → J8W 22:15
PROVIDERS: ADMIT Family Medicine; ATTEND Family Medicine
DX: A41.89 Other specified sepsis (principal); I33.0 Acute and subacute infective endocarditis; Z68.1 Body mass index [BMI] 19.9 or less, adult; J98.4 Other disorders of lung; D69.6 Thrombocytopenia, unspecified; D64.9 Anemia, unspecified; D72.829 Elevated white blood cell count, unspecified; B95.5 Unspecified streptococcus as the cause of diseases classified elsewhere; I34.0 Nonrheumatic mitral (valve) insufficiency; I36.1 Nonrheumatic tricuspid (valve) insufficiency; I50.9 Heart failure, unspecified; R63.4 Abnormal weight loss
CPT/HCPCS: 36415; 71010-TC; 76775-TC; 80053; 81003; 81015; 82550; 82803; 83605; 83615; 84484; 84550; 85025; 85384; 85610; 85651; 85730; 86038; 86140; 86480; 86850; 86900; 86901; 87040; 87086; 87116; 87186; 87206; 87389; 93005; 93010; 93306-TC; 93970-TC; 99284-25